=== PATIENT | female | born 1955 | race Caucasian/White ===

== ENCOUNTER → 2020-02-27 | Outpatient (CLI) | payer OTHER ==
[~2020-02-27] MED LIST: ADVIL200 M3 PO; ALLEGRA ALLERGY60 MG PO; BENADRYL25 MG PO; DULOXETINE HCL60 MG PO; FLONASE 0.05%50 MCG NARES; LISINOPRIL10 MG PO; OCUVITE TABLET1 EAC1 PO; OMEGA 3 FISH O1 EACH PO; OMEPRAZOLE MAGN20 MG PO; SINGULAIR 10 MG10 M1 PO; VITAMIN D310 MC2 PO
== END ==
LOC: LAB 07:42
PROVIDERS: ATTEND Orthopaedic Surgery Sports Medicine
DX: Z01.812 Encounter for preprocedural laboratory examination (principal); Z20.828 Contact with and (suspected) exposure to other viral communicable diseases

== ENCOUNTER 2020-03-03 06:21 | Day surgery (SDC) | payer OTHER ==
[~2020-03-03] VITALS: Ht 162.6 cm; Wt 70.3 kg
[2020-03-03 07:49] VITALS: BP 129/82
[2020-03-03 09:14] VITALS: BP 129/82
[2020-03-03 09:16] VITALS: BP 129/82
--- NOTE | 2020-03-08 14:20 | O ---
[address] [address] OPERATIVE REPORT Name: BERNARDA BEAL [id number] Admission: 03/03/20 Attend Phys: Dusty Estes MD Discharge: 03/03/20 Date of : 57 Report #: [id number] THIS REPORT FOR: cc: Codi Nj MD, Liliana E. MD McCabe,Dusty Webster MD ~ CC: Codi Estes DATE OF SERVICE: 03/03/2020 SERVICE: Orthopedics. FACILITY: [facility]. SURGEON: Dusty Estes MD EXTENDED DAY TEACHER: Shelia Silverio NP PREOPERATIVE DIAGNOSES: 1. Right hip pain. 2. Right hip greater trochanteric pain syndrome. 3. Right hip trochanteric bursitis. 4. Right hip partial abductor tendon tear with abductor tendon tendinopathy affecting gluteus minimus. POSTOPERATIVE DIAGNOSES: 1. Right hip pain. 2. Right hip greater trochanteric pain syndrome. 3. Right hip trochanteric bursitis. 4. Right hip partial abductor tendon tear with abductor tendon tendinopathy affecting gluteus minimus. PROCEDURES: 1. Right hip open abductor tendon repair of gluteus tendon. 2. Right hip open trochanteric bursectomy. COMPLICATIONS: None. DRAINS: None. SPECIMENS: None. ANESTHESIA: General with regional. FINDINGS: [address] [address] OPERATIVE REPORT Name: BERNARDA BEAL [facility]#: [id number] Admission: 03/03/20 Attend Phys: Dusty Estes MD Discharge: 03/03/20 Date of : 57 Report #: [id number] 1. Overall, healthy-appearing tissue. 2. Abductor repair with Nikki 2.0 mm tape with running locking suture configuration and ReelX anchor. 3. Postoperative protocol: Foot flat touchdown weightbearing to the right lower extremity with crutches or walker x 4 weeks. We will have her begin physical therapy at 3 weeks and advance the weightbearing such that she can be off by 4 weeks. This is due to the very healthy tissue quality encountered at surgery and the strong repair. 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 We had tried conservative measures including rest, activity modifications, extensive physical therapy, oral medicines modalities, injections, all without sufficient relief. She had an MRI, which showed tendinopathy of the abductor tendon and a small partial-thickness tear as well as trochanteric bursitis. Ultimately, she elected to undergo surgical treatment because she was having significant pain. She is also being treated for a back condition that is likely referring some degree of pain to this region. Risks, benefits, alternatives, and indication of surgery were discussed with her in detail. Risks include but not limited to pain, bleeding, infection, injury to nerves or blood vessels, persistent pain despite surgical intervention, failure of any repairs, progression of preexisting chondral injury, stiffness, need for further surgery as well as complications related to anesthesia such as stroke, heart attack, pulmonary complications, thromboembolic disease and . Despite these risks, she wished to proceed. PROCEDURE IN DETAIL: After right lower extremity was correctly identified in the preoperative holding area as the operative extremity, the patient was taken to the operating room where general anesthesia with LMA was induced without complication. She was turned into lateral decubitus position, right side up, left side down padded appropriately. Prophylactic antibiotics were administered at appropriate time. Right leg was then prepped and draped in standard sterile fashion. Timeout procedure performed. Standard lateral incision was made. Full-thickness skin flaps were developed down to the fascia, which was incised in line with the gluteus fibers and then the muscle splitting approach was performed to get to the trochanter and the gluteus medius and minimus muscles as well as the abductor insertion. The superficial fibers were healthy and intact and the muscle tendon unit overall was functional. There was a thick trochanteric bursa, which was hypervascular and the bursa was excised sharply as well as with the cautery and hemostasis was achieved and this bursal tissue was discarded. This allowed visualization of the trochanter and the insertion of the gluteus medius and minimus muscles. Longitudinal incision was then made in the central portion of the tendon to allow access to the deep fibers where the tendinopathy was present as well as a partial-thickness tearing, which affected gluteus minimus and the tendinopathy [address] [address] OPERATIVE REPORT Name: BERNARDA BEAL Room #: [facility] Sylvia#: [id number] Admission: 03/03/20 Attend Phys: Dusty Estes MD Discharge: 03/03/20 Date of : 57 Report #: [id number] was visualized and then was debrided sharply as well as with the rongeur and then the proximal portion of the trochanter was gently debrided with the rongeur as well to remove the hypertrophic tissue in this area. A Clifton 2.0 suture tape was then used to perform a running locking modified Cisne type suture, working from distal posteriorly to proximal posterior and then across anteriorly and then back down distally in a box type configuration and then these were placed in a ReelX anchor, which was placed distal into the trochanter and advanced and then it was tensioned and excellent advancement of the tissues was performed. Suture was then used to reinforce the repair and care was taken to avoid strangulation of the muscle fibers themselves. The tendon repair was structurally sound at this point. No additional implants were required. The wound was copiously irrigated. The fascial layer was closed over a gram of vancomycin powder with 0 Vicryl suture in [id number] fashion. The fat layer was closed with 2-0 Vicryl and then the skin was closed with 2-0 Vicryl followed by a running subcuticular 3-0 Monocryl and Dermabond and then a sterile dressing was applied. The patient was awakened from anesthesia and taken to recovery room in stable condition. No complications were recorded. All counts were recorded as correct. She will be using a walker and abduction brace for 4 weeks. <ELECTRONICALLY SIGNED> By: Dusty Estes MD 03/08/20 1420 [id number] Dusty Estes MD /nt
== END 2020-03-03 10:16 | disposition home or self-care (01) ==
LOC: OR → TBA 06:21 → OR 09:02
PROVIDERS: ATTEND Orthopaedic Surgery Sports Medicine
DX: M25.551 Pain in right hip (principal); M70.61 Trochanteric bursitis, right hip; S76.211A Strain of adductor muscle, fascia and tendon of right thigh, initial encounter; M76.01 Gluteal tendinitis, right hip; I10 Essential (primary) hypertension; K21.9 Gastro-esophageal reflux disease without esophagitis; Z98.890 Other specified postprocedural states; Z79.899 Other long term (current) drug therapy; Z87.891 Personal history of nicotine dependence; X58.XXXA Exposure to other specified factors, initial encounter; Y93.89 Activity, other specified; Y92.89 Other specified places as the place of occurrence of the external cause; Y99.8 Other external cause status
CPT/HCPCS: 50010; 50101; 50382; 50414; 53078; 54118; 56526; 56527; 56528; 57103; 57446; 57447; 62110; 62900; 70005